=== PATIENT | female | born 1960 | race Caucasian/White ===

== ENCOUNTER → 2017-02-27 | Outpatient (CLI) | payer OTHER ==
[~2017-02-27] MED LIST: ACET-1600 PO; BIOT1TAB PO; BLAC20TA PO; CALC-72 PO; CHOL200012 PO; HYDR-3138 PO; LEVO100T PO; LEVO88TA2 PO; MAGN400T7 PO; MULT-516 PO; TIZA2TAB PO
== END | disposition home or self-care (01) ==
LOC: RAD 16:35
PROVIDERS: ATTEND Nurse Practitioner Family
DX: M19.011 Primary osteoarthritis, right shoulder (principal)

== ENCOUNTER → 2018-01-04 | Outpatient (CLI) | payer OTHER ==
[~2018-01-04] MED LIST changes: -BIOT1TAB PO; +BIOT1TAB2 PO; +CALC-534 PO; -CALC-72 PO; -CHOL200012 PO; +CHOL200074 PO; -HYDR-3138 PO; +HYDR-3237 PO
== END ==
LOC: RAD 14:01
PROVIDERS: ATTEND Nurse Practitioner Family
DX: M25.551 Pain in right hip (principal)

== ENCOUNTER 2019-05-23 11:51 | Outpatient (CLI) | payer OTHER ==
[~2019-05-23 11:51] MED LIST changes: -MAGN400T7 PO; +MAGN400T9 PO; -TIZA2TAB PO; +TIZA2TAB2 PO
[2019-05-23] MEDS ORDERED: MIDAZOLAM 1 MG/ML, 5ML ONE (12:10)
[2019-05-23] MEDS ORDERED: FENTANYL PF 100 MCG/2ML ONE (12:11)
[2019-05-23] MEDS ORDERED: GADOTERATE 10 MMOL/20 ML VIAL ONE (13:41)
== END 2019-05-23 23:59 | disposition home or self-care (01) ==
LOC: RAD 11:51
PROVIDERS: ATTEND Nurse Practitioner Family
DX: K76.89 Other specified diseases of liver (principal); E03.9 Hypothyroidism, unspecified; E78.00 Pure hypercholesterolemia, unspecified; Z79.890 Hormone replacement therapy; Z79.1 Long term (current) use of non-steroidal anti-inflammatories (NSAID); Z79.899 Other long term (current) drug therapy; Z88.8 Allergy status to other drugs, medicaments and biological substances
CPT/HCPCS: 74183; 99156; 99157; A9575; J2250; J3010